=== PATIENT | female | born 1980 | race Caucasian/White ===

== ENCOUNTER 2017-07-13 21:08 | Emergency (ER) | payer BC, MEDICAID, OTHER ==
[~2017-07-13 21:08] MED LIST: DIPH2%T PO; ESZO2 PO; MACR100C PO; PENI500T PO; PRED20 PO; RANI150 PO; ZOFR4TAB3 SL
[2017-07-13 21:10] VITALS: BP 129/75; PULSE 67; RESP 16; TEMP 97.8; O2SAT 100
[2017-07-13 23:15] VITALS: BP 121/73; PULSE 68; RESP 18; O2SAT 100; O2SAT 98
--- NOTE | 2017-07-13 23:27 | PD ---
HPI Chief Complaint: GI Complaint Time Seen by Provider: 23:11 Travel History International Travel<30 days: No Contact w/Intl Traveler<30days: No Traveled to known affect area: No History of Present Illness HPI The patient is a 37 year old female who presents to the [facility] emergency department with a history of head congestion that she reports began 3 months ago. She reports that it mainly now involves the left maxilla and left side of her nose. The patient reports that she cannot breathe through the left side of her nose. She reports that she at times will have a brown nasal discharge from the right side when she blows her nose. She reports that she's had a postnasal drip, however no significant cough or chest congestion. She reports that she's tried Sudafed, Advil Cold and Sinus without any relief. She denies having any known fevers. She reports that today her headache became worse. She reports that today she also began to have nausea and vomiting 9, and diarrhea times one. She denies having any known sick contacts. Review of systems, the patient denies any neck pain, chest pain, shortness of breath, abdominal pain,urinary symptoms, or neurologic symptoms. LMP: A week and a half ago. PFSH Past Medical History Narrative Medical The patient's past medical history is significant for none. Medical History: Denies Significant Hx Hx Anticoagulant Therapy: No Cardiovascular Problems: No Chemotherapy: No Cerebrovascular Accident: No Diabetes: No Diminished Hearing: No Respiratory: No ?: Not LMP: 06/29/17 : 1 Para: 1 Miscarriage: 0 : 0 Tubal Ligation: Yes Past Surgical History Narrative Surgical The patient's past surgical history is significant for bilateral tubal ligation. Surgical History: No Previous Surgery Gynecologic Surgery: Yes (TUBAL LIGATION) Social History Alcohol Use: No Tobacco Use: No Substance Use: No Allergies-Medications (Allergen,Severity, Reaction): Coded Allergies: doxycycline (Unverified Allergy, Severe, Rash, 07/13/17) iodine (Unverified Allergy, Unknown, HIVES, 07/13/17) potassium iodide (Unverified Allergy, Unknown, HIVES, 07/13/17) povidone-iodine (Unverified Allergy, Unknown, HIVES, 07/13/17) sodium iodide (Unverified Allergy, Unknown, HIVES, 07/13/17) sodium iodide (Unverified Allergy, Unknown, HIVES, 07/13/17) Reported Meds & Prescriptions Reported Meds & Active Scripts Active No Active Prescriptions or Reported Medications Review of Systems Except as stated in HPI: all other systems reviewed are Neg General / Constitutional: No: Fever Eyes: No: Visual changes HENT: Positive: Headaches, Rhinorrhea, Congestion, No: Neck Stiffness, Neck Pain Cardiovascular: No: Chest Pain or Discomfort, Dyspnea on exertion Respiratory: No: Cough, Shortness of Breath Gastrointestinal: Positive: Nausea, Vomiting, Diarrhea, Changes in Bowel Habits , No: Abdominal Pain Genitourinary: No: Dysuria Musculoskeletal: No: Pain Skin: No Rash Neurologic: Positive: Headache, No: Weakness, Focal Abnormalities, Change in Mentation, Slurred Speech Psychiatric: No: Depression Endocrine: No: Polydipsia Hematologic/Lymphatic: No: Easy Bruising Physical Exam Narrative General: The patient is a well-developed well-nourished female in no acute distress. Head and Neck exam: Head is normocephalic atraumatic. Eyes: EOMI, pupils are equal round and reactive to light. Nose: Midline septum with erythematous edematous nasal mucosa worse on the left compared to the right. A yellow nasal discharge is noted in the left naris. Sinuses: The patient has left maxillary sinus tenderness on palpation. Mouth: Dentition unremarkable. Moist mucus membranes. Posterior oropharynx is not erythematous. No tonsillar hypertrophy. Uvula midline. Airway patent. Neck: No palpable lymphadenopathy. No nuchal rigidity. No thyromegaly. Cardiovascular: Regular rate and rhythm without murmurs, gallops, or rubs. Lungs: Clear to auscultation bilaterally. No wheezes, rhonchi, or rales. Abdomen: Soft, without tenderness to palpation in all 4 quadrants of the abdomen. No guarding, rebound, or rigidity. normal bowel sounds are audible. No tenderness on palpation of McBurney's point. Extremities: No clubbing, cyanosis, or edema. 2+ pulses in all 4 extremities. No calf tenderness on palpation. Back: No spinous process tenderness to palpation. No costovertebral angle tenderness to palpation. Neurologic Exam: Grossly nonfocal. Skin Exam: No rash noted. Intact skin that is warm and dry. Data Data Last Documented VS Vital Signs Date Time Temp Pulse Resp B/P (MAP) Pulse Ox O2 Delivery O2 Flow Rate FiO2 07/13/17 23:15 68 18 121/73 (89) 100 Room Air 07/13/17 21:[address] Sinuses W/O Iv Contrast (07/13/17 ) Complete Blood Count With Diff (07/13/17 23:21) Comprehensive Metabolic Panel (07/13/17 23:21) Lipase (07/13/17 23:21) Urinalysis - C+S If Indicated (07/13/17 23:21) Iv Access Insert/Monitor (07/13/17 23:21) Ecg Monitoring (07/13/17 23:21) Oximetry (07/13/17 23:21) Ed Urine Pregnancytest Poc (07/13/17 23:21) Sodium Chlor 0.9% 1000 Ml Inj (Ns 1000 M (07/13/17 23:30) Ondansetron Inj (Zofran Inj) (07/13/17 23:30) Ketorolac Inj (Toradol Inj) (07/13/17 23:30) Ceftriaxone Inj (Rocephin Inj) (07/13/17 23:30) Sodium Chlor 0.9% 1000 Ml Inj (Ns 1000 M (07/14/17 00:30) Urine Culture (07/14/17 00:40) Labs Laboratory Tests Test 07/13/17 23:30 07/14/17 00:40 White Blood Count 10.3 TH/MM3 Red Blood Count 4.07 MIL/MM3 Hemoglobin 10.9 GM/DL Hematocrit 33.1 % Mean Corpuscular Volume 81.1 FL Mean Corpuscular Hemoglobin 26.7 PG Mean Corpuscular Hemoglobin Concent 32.9 % Red Cell Distribution Width 14.9 % Platelet Count 291 TH/MM3 Mean Platelet Volume 8.8 FL Neutrophils (%) (Auto) 59.1 % Lymphocytes (%) (Auto) 25.6 % Monocytes (%) (Auto) 8.9 % Eosinophils (%) (Auto) 5.7 % Basophils (%) (Auto) 0.7 % Neutrophils # (Auto) 6.1 TH/MM3 Lymphocytes # (Auto) 2.7 TH/MM3 Monocytes # (Auto) 0.9 TH/MM3 Eosinophils # (Auto) 0.6 TH/MM3 Basophils # (Auto) 0.1 TH/MM3 CBC Comment DIFF FINAL Differential Comment Blood Urea Nitrogen 15 MG/DL Creatinine 0.80 MG/DL Random Glucose 74 MG/DL Total Protein 7.5 GM/DL Albumin 3.9 GM/DL Calcium Level 9.1 MG/DL Alkaline Phosphatase 98 U/L Aspartate Amino Transf (AST/SGOT) 15 U/L Alanine Aminotransferase (ALT/SGPT) 32 U/L Total Bilirubin 0.4 MG/DL Sodium Level 140 MEQ/L Potassium Level 3.8 MEQ/L Chloride Level 108 MEQ/L Carbon Dioxide Level 25.4 MEQ/L Anion Gap 7 MEQ/L Estimat Glomerular Filtration Rate 80 ML/MIN Lipase 103 U/L Urine Color YELLOW Urine Turbidity CLOUDY Urine pH 5.5 Urine Specific [place] 1.029 Urine Protein TRACE mg/dL Urine Glucose (UA) NEG mg/dL Urine Ketones NEG mg/dL Urine Occult Blood NEG Urine Nitrite NEG Urine Bilirubin NEG Urine Urobilinogen LESS THAN 2.0 MG/DL Urine Leukocyte Esterase LARGE Urine RBC 1 /hpf Urine WBC 25 /hpf Urine Squamous Epithelial Cells 66 /hpf Urine Bacteria RARE /hpf Urine Mucus FEW /lpf Microscopic Urinalysis Comment CULTURE INDICATED MDM Medical Decision Making Medical Screen Exam Complete: Yes Emergency Medical Condition: Yes Medical Record Reviewed: Yes Differential Diagnosis Acute sinusitis, versus viral syndrome, versus allergic rhinitis, versus polyp, versus gastroenteritis Narrative Course During the course of the patients emergency department visit, the patients history, examination, and differential diagnosis were reviewed with the patient. The patient had IV access obtained and blood work sent for analysis. The patient was placed on a sheet rock layer with oximetry and blood pressure monitoring. A CT scan of the sinuses was ordered. The patient was initially provided normal saline 1 L IV fluid bolus, Zofran 4 mg IV, Rocephin 1 g IV, Toradol 15 mg IV. The patients laboratory studies were reviewed and remarkable for a white count of 10.3, hemoglobin 10.9, platelets 291 with 8.9 monocytes CMP is remarkable for chloride of 108, GFR of 80, lipase 103, urinalysis shows large leukocyte esterase, 25 WBCs, 66 squamous epithelial cells, rare bacteria, culture indicated. Given the gross degree of contamination from the high number of squamous epithelial cells and only rare bacteria, without symptoms related to a urinary tract infection, the patient will have culture sent and treatment at this point held. Radiology studies were reviewed and remarkable for a CT scan of the sinuses that reveals muco-periosteal thickening throughout all of the paranasal sinuses and most severe in the ethmoid and maxillary sinuses. There is complete opacification of the left nasal cavity. This could be secondary to mucosal thickening, polyps, or mass. The patient will be discharged home with a prescription for Dynmyst, Augmentin. The patient is instructed to follow-up with an research study assistant. The patient was given the name of the research study assistant controller coal or ore, Dr. Alavrado. The patient was additionally given a prescription for Zofran for nausea. The patient is instructed regarding the importance of pushing fluids with an electrolyte rich solution. The patient is resting comfortably and feels better, is alert and in no distress. The patients results and examination findings were discussed with the patient. The repeat examination is unremarkable and benign. The history, exam, diagnostic testing, and current condition do not suggest any significant pathology to warrant further testing, continued ED treatment, admission, or surgical evaluation at this point. The vital signs have been stable. The patient does not have uncontrollable pain, intractable vomiting, or other significant symptoms. The patient's condition is stable and appropriate for discharge. The patient will pursue further outpatient evaluation with a primary care physician or other designated or consulting physician as indicated in the discharge instructions. The patient expressed understanding and was agreeable with this plan. Diagnosis Primary Impression: Acute sinusitis Qualified Codes: J01.40 - Acute pansinusitis, unspecified Additional Impression: Nausea, vomiting, and diarrhea Referrals: Samson Alvarado MD 1 week Primary Care Physician 2 days Patient Instructions: Acute Diarrhea (ED), Acute Nausea and Vomiting (ED), General Instructions, Sinusitis (ED) Med/Other Pt SpecificInfo: Prescription(s) given Scripts Azelastine-Fluticasone Nasal [place] (Dymista Nasal [place]) 137-50 Mcg [place] 1 SPRAY EACH NARE BID for Allergies, #1 BOTTLE 0 Refills To each nostril. Prov: Genesis Cordoba MD 07/14/17 Amoxicillin-Clavulanate (Augmentin) 875-125 Mg Tab 1 TAB PO BID for Infection for 10 Days, TAB 0 Refills Prov: Genesis Cordoba MD 07/14/17 Ondansetron Odt (Zofran Odt) 4 Mg Tab 4 MG SL Q6HR Y for Nausea/Vomiting, #7 TAB 0 Refills Prov: Genesis Cordoba MD 07/14/17 Disposition: 01 DISCHARGE HOME Condition: Stable Genesis Cordoba MD Jul 13, 2017 23:27
[2017-07-13] MEDS ORDERED: cefTRIAXone INJ 1,000 MG in SODIUM CHLORIDE 0.9% INJ 100 ML IV ONE (23:30)
[2017-07-13] MEDS ORDERED: KETOROLAC TROMETHAMINE 30 MG/ML (IVP) VIAL IV PUSH ONE (23:30)
[2017-07-13] MEDS ORDERED: SODIUM CHLOR 0.9% 1000 ML INJ 1,000 ML IV ONE (23:30)
[2017-07-13] MEDS ORDERED: ONDANSETRON HCL 4 MG/2 ML VIAL IV ONE (23:30)
[2017-07-14 00:07] LABS: AUTOMATED NEUTROPHIL # 6.1 TH/MM3 (1.8-7.7); BASOPHIL # 0.1 TH/MM3 (0-0.2); BASOPHIL % 0.7 % (0.0-2.0); EOSINOPHIL # 0.6 TH/MM3 (0-0.4); EOSINOPHIL % 5.7 % (0.0-4.0); HEMATOCRIT 33.1 % (35.0-46.0); HEMO FLAGS DIFF FINAL; LYMPH % 25.6 % (9.0-44.0); LYMPHOCYTE # 2.7 TH/MM3 (1.0-4.8); MEAN CELL VOLUME 81.1 FL (80.0-100.0); MEAN CORPUSCULAR HEMOGLOBIN 26.7 PG (27.0-34.0); MEAN CORPUSCULAR HGB CONC 32.9 % (32.0-36.0); MONO % 8.9 % (0.0-8.0); NEUT % 59.1 % (16.0-70.0); PLATELET COUNT 291 TH/MM3 (150-450); RED BLOOD COUNT 4.07 MIL/MM3 (4.00-5.30); RED CELL DISTRIBUTION WIDTH 14.9 % (11.6-17.2); WHITE BLOOD COUNT 10.3 TH/MM3 (4.0-11.0)
[2017-07-14 00:19] LABS: ALT (GPT) 32 U/L (10-53); ANION GAP 7 MEQ/L (5-15); AST (GOT) 15 U/L (15-37); BICARBONATE 25.4 MEQ/L (21.0-32.0); BLOOD UREA NITROGEN 15 MG/DL (7-18); CHLORIDE 108 MEQ/L (98-107); GLOMERULAR FILTRATION RATE 80 ML/MIN (>89); POTASSIUM 3.8 MEQ/L (3.5-5.1); SODIUM (NA) 140 MEQ/L (136-145)
[2017-07-14 00:21] LABS: ALKALINE PHOSPHATASE 98 U/L (45-117); TOTAL BILIRUBIN ADULT 0.4 MG/DL (0.2-1.0)
[2017-07-14] MEDS ORDERED: SODIUM CHLOR 0.9% 1000 ML INJ 1,000 ML IV ONE (00:30)
[2017-07-14 01:05] LABS: BACTERIA, URINE RARE /hpf; BLOOD, URINE NEG (NEG); COMMENT (UR) CULTURE INDICATED; CULTURE IF INDICATED CULTURE INDICATED; GLUCOSE,URINE NEG (NEG); KETONE, URINE NEG (NEG); MUCUS URINE FEW /lpf (OCC); NITRITE,URINE NEG (NEG); PH, URINE 5.5 (5.0-8.5); SQUAMOUS EPITHELIAL CELL URINE 66 /hpf (0-5); URINE COLOR YELLOW (YELLW/STRAW)
--- NOTE | 2017-07-14 01:24 | RADRPT ---
EXAM DATE/TIME: 07/14/2017 01:06 [place] COMPARISON: No previous studies available for comparison. INDICATIONS : Left sided sinus congestion. RADIATION DOSE: 11.0 CTDIvol (mGy) MEDICAL HISTORY : None SURGICAL HISTORY : Tubal ligation. ENCOUNTER: Initial ACUITY: 1 day PAIN SCORE: 9/10 LOCATION: Left sinus TECHNIQUE: Volumetric scanning of the paranasal sinuses was performed. Using automated exposure control and adj ustment of the mA and/or kV according to patient size, radiation dose was kept as low as reasonably a chievable to obtain optimal diagnostic quality images. DICOM format image data is available electro nically for review and comparison. FINDINGS: MAXILLARY SINUSES: There is moderate to severe mucoperiosteal thickening bilaterally. No air-fluid level is present. ETHMOID SINUSES: There is severe mucoperiosteal thickening with near-complete opacification. SPHENOID SINUSES: There is mild mucoperiosteal thickening. No air-fluid level. FRONTAL SINUSES: The frontal sinuses are not aerated. NASAL FOSSA: Nasal septum is midline. There is near-complete opacification of the left nasal cavity. OTHER: Ostiomeatal outflow tracts are obstructed secondary to mucosal thickening. Intracranial structures an d globes demonstrate no acute finding. CONCLUSION: 1. Mucoperiosteal thickening throughout all of the paranasal sinuses and most severe in the ethmoid a nd maxillary sinuses. 2. There is complete opacification of the left nasal cavity. This could be secondary to mucosal thick ening, polyps, or mass. Luther Emery MD on July 14, 2017 at 1:19 Board Certified Radiologist. This report was verified electronically.
[2017-07-14] MEDS ORDERED: AUGM875T3 PO (01:33)
[2017-07-14] MEDS ORDERED: ZOFR4TAB3 SL (01:33)
[2017-07-14] MEDS ORDERED: AZEL137S EACH NARE (01:33)
[2017-07-14 01:52] VITALS: BP 103/58; PULSE 68; RESP 18; O2SAT 98
== END 2017-07-14 02:27 | disposition home or self-care (01) ==
LOC: NEPC 21:08
DX: J01.40 Acute pansinusitis, unspecified (principal); R11.2 Nausea with vomiting, unspecified; R19.7 Diarrhea, unspecified; R82.99 Other abnormal findings in urine
CPT/HCPCS: 70486; 80053; 81001; 83690; 84703; 85025; 87086; 96365; 96375; 99285; J0696; J1885; J2405; J7030

== ENCOUNTER 2018-02-17 12:39 | Emergency (ER) | payer BC, OTHER ==
[~2018-02-17] VITALS: Ht 165.1 cm; Wt 84.0 kg
[~2018-02-17 12:39] MED LIST changes: +AUGM875T3 PO; +AZEL137S EACH NARE; -DIPH2%T PO; -ESZO2 PO; -MACR100C PO; -PENI500T PO; -PRED20 PO; -RANI150 PO
[2018-02-17 12:44] VITALS: BP 121/74; PULSE 89; RESP 16; TEMP 97.8; O2SAT 99
[2018-02-17] MEDS ORDERED: PRED-503 PO (14:07)
--- NOTE | 2018-02-17 14:08 | PD ---
HPI Chief Complaint: Skin Problem Time Seen by Provider: 13:25 Travel History International Travel<30 days: No Contact w/Intl Traveler<30days: No Traveled to known affect area: No History of Present Illness HPI 37-year-old female presents to emergency department with complaint of a rash that instantly onset after walking outside today. The rashes to her bilateral upper arms and shoulder area. Denies fever, vomiting. Denies airway edema, tongue edema, shortness of breath, difficulty breathing, wheezing. Says the rash is burning. Denies that the rash is itchy. Took Benadryl prior to arrival for symptom management. Symptoms are mild in severity. No others with similar symptoms. No known aggravating or relieving factors. States she had a similar rash onset a few weeks ago and went to [facility] and they gave her steroids. No primary care provider. Allergies as listed on the chart. Denies significant past medical history. Has no other medical complaints. No other modifying factors or associated signs and symptoms. PFSH Past Medical History Medical History: Denies Significant Hx Hx Anticoagulant Therapy: No Cardiovascular Problems: No Chemotherapy: No Cerebrovascular Accident: No Diabetes: No Diminished Hearing: No Respiratory: No Tetanus Vaccination: < 5 Years ?: Not : 1 Para: 1 Miscarriage: 0 : 0 Tubal Ligation: Yes Past Surgical History Gynecologic Surgery: Yes (TUBAL LIGATION) Social History Alcohol Use: No Tobacco Use: No Substance Use: No Allergies-Medications (Allergen,Severity, Reaction): Coded Allergies: doxycycline (Unverified Allergy, Severe, Rash, 02/17/18) iodine (Unverified Allergy, Unknown, HIVES, 02/17/18) potassium iodide (Unverified Allergy, Unknown, HIVES, 02/17/18) povidone-iodine (Unverified Allergy, Unknown, HIVES, 02/17/18) sodium iodide (Unverified Allergy, Unknown, HIVES, 02/17/18) sodium iodide (Unverified Allergy, Unknown, HIVES, 02/17/18) Reported Meds & Prescriptions Reported Meds & Active Scripts Active Deltasone (Prednisone) 20 Mg Tab 40 Mg PO DAILY 5 Days Dymista Nasal [place] (Azelastine-Fluticasone Nasal [place]) 137-50 Mcg [place] 1 [place] EACH NARE BID To each nostril. Augmentin (Amoxicillin-Clavulanate) 875-125 Mg Tab 1 Tab PO BID 10 Days Zofran Odt (Ondansetron Odt) 4 Mg Tab 4 Mg SL Q6HR PRN Review of Systems Except as stated in HPI: all other systems reviewed are Neg Physical Exam Narrative GENERAL: Well-nourished, well-developed pain patient, in no acute distress; afebrile, nontoxic-appearing SKIN: Warm and dry. Erythremic pimple-like rash to bilateral shoulders and upper arm. No rash noted to back, chest, abdomen, bilateral lower extremities, face. no areas with cellulitic process noted. HEAD: Atraumatic. Normocephalic. EYES: Pupils equal and round. No scleral icterus. No injection or drainage. ENT: Mucosa pink and moist. Airway patent. NECK: Trachea midline. CARDIOVASCULAR: Regular rate. RESPIRATORY: No accessory muscle use. GASTROINTESTINAL: Flat. MUSCULOSKELETAL: No obvious deformities. No clubbing. No cyanosis. No edema. NEUROLOGICAL: Awake and alert. Oriented 3. No obvious cranial nerve deficits. Motor grossly within normal limits. Normal speech. PSYCHIATRIC: Appropriate mood and affect; insight and judgment normal. Data Data Last Documented VS Vital Signs Date Time Temp Pulse Resp B/P (MAP) Pulse Ox O2 Delivery O2 Flow Rate FiO2 02/17/18 12:44 97.8 89 16 121/74 (90) 99 Orders Orders Ed Discharge Order (02/17/18 14:08) MDM Medical Decision Making Medical Screen Exam Complete: Yes Emergency Medical Condition: Yes Medical Record Reviewed: Yes Differential Diagnosis Contact dermatitis, acute rash, nonspecific rash, hives, scabies Narrative Course 37-year-old female with a nonspecific rash and skin eruption to bilateral shoulders and upper arms that spontaneously occurred when she walked outside. She reports having a similar rash that occurred a few weeks ago and was given steroids after being seen at [facility]. She is in no acute distress. Denies airway edema. Afebrile, nontoxic-appearing. Denies fever, vomiting. Deltasone prescribed for home. Instructed patient to follow-up with dermatology. Instructed patient to follow up with primary care provider. Patient verbalizes understanding and agreement with treatment plan. Patient is medically cleared and stable for discharge. Discussed reasons to return to the emergency department. Patient agrees with treatment plan. The patients vital signs are stable and the patient is stable for outpatient follow-up and treatment. Patient discharged home, stable and in no acute distress. Diagnosis Primary Impression: Rash and nonspecific skin eruption Referrals: [employer] Primary Care Physician Patient Instructions: Acute Rash (ED), General Instructions Departure Forms: Tests/Procedures, Work Release Enter return to work date: Feb 18, 2018 Additional Instructions: Take oral steroids as prescribed [id number] topicals to reduce itch Benadryl as directed and as needed to reduce itch Follow-up with your primary care provider Return to the emergency department immediately with worsening of symptoms Med/Other Pt SpecificInfo: Prescription(s) given Scripts Prednisone (Deltasone) 20 Mg Tab 40 MG PO DAILY for 5 Days, #10 TAB 0 Refills Prov: Faiza Harper 02/17/18 Disposition: 01 DISCHARGE HOME Condition: Stable Faiza Harper Feb 17, 2018 14:08
== END 2018-02-17 14:25 | disposition home or self-care (01) ==
LOC: NEPK 12:39
DX: R21 Rash and other nonspecific skin eruption (principal)
CPT/HCPCS: 99283

== ENCOUNTER → 2018-04-28 | Outpatient (CLI) | payer OTHER ==
[~2018-04-28] MED LIST changes: +PRED-503 PO
--- NOTE | 2018-04-28 13:29 | RADRPT ---
EXAM DATE: 04/28/2018 1:23 PM EDT AGE/SEX: 37 years / Female INDICATIONS: Shortness of breath. CLINICAL DATA: This is the patient's initial encounter. Patient reports that signs and symptoms have been present for 2 months and indicates a pain score of 0/10. MEDICAL/SURGICAL HISTORY: None. None. COMPARISON: No prior exams available for comparison. FINDINGS: PA and lateral views of the chest demonstrate the lungs to be symmetrically aerated without evidence of mass, infiltrate or effusion. The cardiomediastinal contours are unremarkable. Osseous structures are intact. CONCLUSION: Negative examination. Electronically signed by: Robin Ratliff MD 04/28/2018 1:28 PM EDT
== END ==
LOC: HRSP 09:42
PROVIDERS: ATTEND Internal Medicine Sleep Medicine
DX: R06.89 Other abnormalities of breathing (principal)
CPT/HCPCS: 71046; 94060; 94726; 94729